=== PATIENT | male | born 1985 ===

== ENCOUNTER 2016-09-18 12:35 | Emergency (ER) | payer MEDICAID, OTHER ==
[2016-09-18 13:16] VITALS: BP 128/76; PULSE 69; RESP 16; TEMP 98; O2SAT 100
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
--- NOTE | 2016-09-18 15:04 | RAD ---
PROCEDURE: Cervical Spine Radiographs. AP lateral open-mouth views of the cervical spine performed. Note that the study is limited due to obscuration of the odontoid by overlying occiput and incisor teeth in the open-mouth projection of. HISTORY: Pain. COMPARISON: None. FINDINGS: BONES: Current study reveals no evidence of acute displaced or compression fracture deformities nor retropulsed fragments within limitation of the study. Clinical correlation recommended to determine whether additional imaging is required DISC SPACES: Disc space heights are relatively maintained. Tiny marginal posterior osteophytes seen at several levels. SOFT TISSUES: No significant prevertebral soft tissue swelling OTHER FINDINGS: None. IMPRESSION: Limited study demonstrating no definitive evidence of acute fractures. Minor multilevel degenerative spondylosis. See above discussion for additional findings details and recommendations.
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
== END 2016-09-18 15:20 | disposition home or self-care (01) ==
LOC: H.ER 12:35
DX: S13.4XXA Sprain of ligaments of cervical spine, initial encounter (principal); S23.3XXA Sprain of ligaments of thoracic spine, initial encounter; V49.50XA Passenger injured in collision with unspecified motor vehicles in traffic accident, initial encounter; Y93.9 Activity, unspecified